=== PATIENT | female | born 1955 | race Caucasian/White ===

== ENCOUNTER → 2018-07-04 | Outpatient (CLI) | payer OTHER | LOC: M.SLEEPLAB 10:00 | DX: R06.83 Snoring (principal); R53.83 Other fatigue; R40.0 Somnolence; R06.81 Apnea, not elsewhere classified; F51.8 Other sleep disorders not due to a substance or known physiological condition ==

== ENCOUNTER → 2018-08-06 | Outpatient (CLI) | payer OTHER ==
--- NOTE | ~2018-08-06 | SLEEP ---
[address] [address] SLEEP STUDY REPORT Name: JOLEEN VIGIL Room: [facility]#: [id number] Admission: 08/06/18 Attend Phys: Bri Law RN Discharge: Date of : 59 Report #: [id number] THIS REPORT FOR: //name// CC: Physician staff OPHELIA HILLS-Cielo This study has been reviewed in its entirety by a board certified sleep specialist DATE OF SERVICE: 08/06/2018 SLEEP STUDY ATTENDING PHYSICIAN: Dr. Bri Law This 62 years old who weighs 165 pounds with a BMI of 26.6. The patient's [place] score was not available. The patient underwent diagnostic sleep study performed at [facility]. During the night study, the patient spent 458 minutes in bed and slept for 259 minutes with a sleep efficiency of 63%. Sleep latency was prolonged at 66 minutes with a REM latency of 229 minutes. Overall, sleep architecture showed normal stage 1 sleep, slightly reduced stage 2 sleep, increased N3 sleep and increased REM sleep. During the night study, the patient had 1 obstructive apnea and 3 central apneas and no mixed apneas. There were 2 hypopneas. The patient's apnea-hypopnea index for the entire night was 1.2 per hour with a REM index of 2.2 per hour and a supine index of 0.5 per hour. EKG monitoring revealed an average heart rate of 59 beats per minute. No arrhythmias observed. No PLMS observed. Nocturnal oximetry study reveals an average oxygen saturation of 96% with a lowest of 87%. No significant desaturation of less than 88% was observed. Due to low AHI, the patient did not meet the split night criteria for CPAP initiation. IMPRESSION: 1. No clinically significant sleep-disordered breathing. The patient's kferh-hyls-oqjndkvn index for the entire night was 1.3 [place] [address] SLEEP STUDY REPORT Name: JOLEEN VIGIL Room: [facility]#: [id number] Admission: 08/06/18 Attend Phys: Bri Law RN Discharge: Date of : 59 Report #: [id number] 2. No clinically significant nocturnal hypoxia. 3. No clinically significant periodic limb movements of sleep. RECOMMENDATIONS: 1. The patient did not meet the criteria for CPAP initiation. 2. Avoid [employer] MGR depressants. 3. If the patient is clinically symptomatic, then consider looking for other disorders such as narcolepsy or idiopathic hypersomnia. MSLT would be indicated at that time. By: [id number] Marietta Gutierrez MD /nt
== END ==
LOC: M.SLEEPLAB 20:00
DX: R06.83 Snoring (principal); R40.0 Somnolence; R53.83 Other fatigue